=== PATIENT | female | born 1995 | race Caucasian/White ===

== ENCOUNTER 2021-03-27 14:53 | Emergency (ER) | payer BC, OTHER ==
[~2021-03-27] VITALS: Ht 152.4 cm; Wt 54.4 kg
--- NOTE | 2021-03-27 15:38 | NUR ---
Patient does not wish to proceed with medical care recommended by Dr. Ignacio esteban ). Patient given information related to possible complications, up to and including , which could occur as a result of leaving the hospital at this time. Patient verbalizes understanding of risks involved due to leaving against medical advice. Patient has signed AMA form.
== END 2021-03-27 15:42 | disposition left against medical advice (07) ==
LOC: ER 14:58
DX: R05.9 Cough, unspecified (principal); E11.9 Type 2 diabetes mellitus without complications; Z79.4 Long term (current) use of insulin
CPT/HCPCS: A4663